=== PATIENT | male | born 1980 | race Caucasian/White ===

== ENCOUNTER 2020-06-27 15:04 | Emergency (ER) | payer MEDICAID, MEDICARE ==
[~2020-06-27] VITALS: Ht 182.9 cm; Wt 97.2 kg
[~2020-06-27 15:04] MED LIST: ACET650S12 PR; AMLO10TA8 PO; FURO40TA6 PO; GEMF600T8 PO; GLYB1.252 PO; INSU100V13 SQ; INSU100V5 SQ-INSULIN; LISI-167 PO; METF10002 PO; SITA100T PO
[2020-06-27 15:52] LABS: BASOPHILS # (AUTO) 0.01 x10^3/uL (0-0.1); BASOPHILS % (AUTO) 0 % (0-1); EOSINOPHILS # (AUTO) 0.01 x10^3/uL (0-0.4); EOSINOPHILS % (AUTO) 0 % (1-7); LYMPHOCYTES % (AUTO) 15 % (22-44); MD NO; MEAN CORPUSCULAR HEMOGLOBIN 30.2 pg (27.5-34.5); MEAN CORPUSCULAR VOLUME 94.4 fL (81-97); MEAN PLATELET VOLUME 8.7 fL (7.4-10.4); MONOCYTES # (AUTO) 0.66 x10^3/uL (0.2-0.8); MONOCYTES % (AUTO) 8 % (2-9); NEUTROPHILS # (AUTO) 6.24 x10^3/uL (1.8-6.8); NEUTROPHILS % (AUTO) 77 % (42-75); PLATELET COUNT 220 x10^3/uL (130-400); RED BLOOD COUNT 3.57 x10^6/uL (4.38-5.82)
[2020-06-27] MEDS ORDERED: SODIUM CHLORIDE 0.9% 1,000ML IVBOLUS ONE (16:00)
[2020-06-27] MEDS ORDERED: SODIUM CHLORIDE FLUSH 10ML SYR IVF ONE (16:00)
[2020-06-27 16:03] LABS: ALANINE AMINOTRANSFERASE 63 U/L (12-78); ALBUMIN 3.8 g/dL (3.4-5.0); ANION GAP 13 mmol/L (5-15); CHLORIDE 96 mmol/L (98-107)
[2020-06-27 16:05] LABS: ALKALINE PHOSPHATASE 64 U/L (45-117); BILIRUBIN,TOTAL 0.4 mg/dL (0.2-1.0); TOTAL PROTEIN 8.2 g/dL (6.4-8.2)
[2020-06-27 16:27] LABS: ACETONE, SERUM Negative (Negative)
--- NOTE | 2020-06-27 16:48 | NUR ---
URINE COLLECTED AND SENT TO LAB. BEDSIDE COMMODE PLACED IN ROOM W/ HAT FOR SAMPLE.
[2020-06-27 16:54] LABS: MICROSCOPIC AUTO
[2020-06-27] MEDS ORDERED: CEFTRIAXONE PMX 1GM/50ML 50 ML IV ONE (17:00)
[2020-06-27] MEDS ORDERED: AZITHROMYCIN 500 MG in SODIUM CHLORIDE 0.9% 250 ML IV ONE (17:00)
[2020-06-27] MEDS ORDERED: CEFTRIAXONE PMX 1GM/50ML 50 ML ONE (17:07)
[2020-06-27] MEDS ORDERED: CEFTRIAXONE 1,000 MG ONE (17:17)
[2020-06-27] MEDS ORDERED: LIDOCAINE-MPF 1%, 5ML ONE (17:17)
[2020-06-27 17:22] VITALS: BP 146/65
[2020-06-27] MEDS ORDERED: CEFTRIAXONE 1,000 MG IM ONE (17:30)
--- NOTE | 2020-06-27 17:31 | NUR ---
PIV INFILTRATED PRIOR TO ABX ADMIN. UPDATED. NEW ORDERS RECEIVED. PT MEDICATED PER EMAR.
--- NOTE | 2020-06-27 17:35 | NUR ---
COVID SWAB OBTAINED BY AND WALKED TO LAB.
--- NOTE | 2020-06-27 17:37 | NUR ---
Patient given discharge instructions and they have confirmed that they understand the instructions. Patient ambulatory with steady gait.
== END 2020-06-27 17:39 | disposition home or self-care (01) ==
LOC: ED 16:57 → UNDOADMIN 17:12 → EDIP 17:12 → ED 17:39
DX: U07.1 COVID-19 (principal); R10.84 Generalized abdominal pain; J18.0 Bronchopneumonia, unspecified organism; I13.11 Hypertensive heart and chronic kidney disease without heart failure, with stage 5 chronic kidney disease, or end stage renal disease; E11.22 Type 2 diabetes mellitus with diabetic chronic kidney disease; N18.6 End stage renal disease; R94.31 Abnormal electrocardiogram [ECG] [EKG]; M10.9 Gout, unspecified; Z99.2 Dependence on renal dialysis
CPT/HCPCS: 36415; 71045; 80053; 81001; 82010; 83605; 83690; 85025; 87635; 93005; 96360; 96372; 99285; J0696; J7030; 96361

== ENCOUNTER 2020-06-27 22:51 | Emergency (ER) | payer MEDICARE ==
[~2020-06-27] VITALS: Ht 182.9 cm; Wt 98.3 kg
[2020-06-27] MEDS ORDERED: ACETAMINOPHEN 500 MG TABLET PO ONE (23:30)
[2020-06-27] MEDS ORDERED: ACETAMINOPHEN 500 MG TABLET ONE (23:38)
[2020-06-28 02:02] LABS: CLOSTRIDIUM DIFFICILE ANTIGEN NEGATIVE; CLOSTRIDIUM DIFFICILE TOXIN NEGATIVE (Negative)
[2020-06-28] MEDS ORDERED: DIPHENOXYLATE/ATROPINE TABLET PO ONE (03:00)
[2020-06-28 03:06] VITALS: BP 116/59
== END 2020-06-28 03:10 | disposition home or self-care (01) ==
LOC: ED 23:21
DX: J18.1 Lobar pneumonia, unspecified organism (principal); R19.7 Diarrhea, unspecified; R50.9 Fever, unspecified; R05 Cough; R06.02 Shortness of breath; I10 Essential (primary) hypertension; E11.9 Type 2 diabetes mellitus without complications
CPT/HCPCS: 71045; 87324; 93005; 99285